=== PATIENT | male | born 1965 | race Caucasian/White ===

== ENCOUNTER 2017-01-01 16:06 | Outpatient (CLI) | payer OTHER ==
[2014-12-31 14:55] VITALS: BMI 29.0
[2017-01-01 16:15] LABS: FLU INTERNAL QC INTERNAL QC VALID; RAPID FLU A NEGATIVE (NEGATIVE); RAPID FLU B NEGATIVE (NEGATIVE)
== END 2017-01-01 16:07 | disposition home or self-care (01) ==
LOC: LAB 16:06
PROVIDERS: ATTEND Nurse Practitioner Family
DX: R52 Pain, unspecified (principal)
CPT/HCPCS: 87804

== ENCOUNTER 2017-08-28 10:13 | Outpatient (CLI) ==
[2014-12-31 14:55] VITALS: BMI 29.0
--- NOTE | 2017-08-28 11:54 | DI ---
EXAM: Two views of the chest. History: Chest pain. Comparison: Chest radiograph and 06/2010 Findings: Heart size is normal. No focal consolidation. No appreciable pleural fluid and no pneumo thorax. No acute osseous abnormalities. Right apical nodular density appears to be partially calcifi ed. Impression: No acute cardiopulmonary process. Partially calcified right apical nodular density. Re commend follow-up chest radiograph in 3 months to document stability.
--- NOTE | 2017-08-28 11:59 | DI ---
Exam: Three views of the right foot. Comparison: None available. Reason for exam: Pain in right foot. FINDINGS: No acute fracture or malalignment. The joint spaces appear relatively well maintained. T here is mild degenerative disease with joint space narrowing. No unexplained calcific soft tissue de nsity or radiopaque retained foreign body. Impression: Degenerative disease in the right foot without evidence of acute fracture.
--- NOTE | 2017-08-28 12:01 | DI ---
EXAM: Radiographs, left foot HISTORY: Left foot pain. COMPARISON: None available. TECHNIQUE: Three views. FINDINGS: Bone mineralization is normal. There is no fracture or dislocation. A small extraarticula r erosions seen in the medial aspect of the first metatarsal head. There is mild adjacent soft tissu e swelling. The joint spaces are maintained. No other focal soft tissue abnormality is seen. IMPRESSION: Small extraarticular erosion in the medial first metatarsal head with adjacent soft tissue swelling. Correlate for gout.
== END 2017-08-28 10:14 | disposition home or self-care (01) ==
LOC: LAB 10:13
PROVIDERS: ATTEND Nurse Practitioner Family
DX: R07.89 Other chest pain (principal); R22.43 Localized swelling, mass and lump, lower limb, bilateral; M79.671 Pain in right foot; M79.672 Pain in left foot
CPT/HCPCS: 36415; 80053; 81001; 84550; 85025; 85379; 93005; 93010

== ENCOUNTER 2018-04-13 08:19 | Emergency (ER) | payer OTHER ==
[2018-04-13] MEDS ORDERED: SODIUM CHLORIDE 1,000 ML IV STA (08:39)
[2018-04-13 08:47] VITALS: BP 164/94; TEMP 96.3; BMI 28.8
[2018-04-13] MEDS ORDERED: ZOFRAN 4 MG/2 ML IM STA (09:20)
[2018-04-13] MEDS ORDERED: MORPHINE 4 MG/ML SYRINGE IM STA (09:21)
[2018-04-13] MEDS ORDERED: ZOFRAN 4 MG/2 ML IVP STA (09:28)
[2018-04-13] MEDS ORDERED: MORPHINE 4 MG/ML VIAL IVP STA (09:28)
[2018-04-13] MEDS ORDERED: MORPHINE 4 MG/ML SYRINGE IVP STA (09:32)
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
--- NOTE | 2018-04-13 11:18 | US ---
EXAM: Bilateral lower extremity venous Doppler History: Bilateral lower extremity pain and edema. Technique: Multiple sonographic images through the bilateral lower extremities were obtained. Color duplex Doppler was used to interrogate vascular flow. Findings: The bilateral common femoral, greater saphenous, profunda, superficial femoral, popliteal, peroneal, posterior tibial and anterior tibial veins demonstrate spontaneous flow with normal compre ssion and normal augmentation. Impression: No sonographic evidence for deep venous thrombosis
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
== END 2018-04-13 11:45 | disposition home or self-care (01) ==
LOC: ED 08:19
DX: M54.5 Low back pain (principal); S82.401A Unspecified fracture of shaft of right fibula, initial encounter for closed fracture; I71.2 Thoracic aortic aneurysm, without rupture; M54.2 Cervicalgia; M79.606 Pain in leg, unspecified; R07.89 Other chest pain; R10.9 Unspecified abdominal pain; R51 Headache; M25.519 Pain in unspecified shoulder; V89.2XXA Person injured in unspecified motor-vehicle accident, traffic, initial encounter
CPT/HCPCS: 36415; 80053; 85025; 93005; 93010; 96361; 96374; 96375; 99283

== ENCOUNTER 2018-04-15 13:50 | Outpatient (CLI) ==
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
== END 2018-04-15 13:51 | disposition home or self-care (01) ==
LOC: RAD 13:50
PROVIDERS: ATTEND Family Medicine
DX: S09.93XA Unspecified injury of face, initial encounter (principal)